=== PATIENT | female | born 1985 | race Caucasian/White ===

== ENCOUNTER 2016-12-06 04:51 | Observation (INO) | payer SELFPAY ==
[~2016-12-06] VITALS: Ht 165.1 cm; Wt 55.0 kg
[2016-12-06 04:51] VITALS: BP 162/74; PULSE 98; RESP 18; TEMP 98; O2SAT 97
[~2016-12-06 04:51] MED LIST: LORT7.5T3 PO; Z.0.NO CURRENT MEDS
[2016-12-06] MEDS ORDERED: LIDOCAINE 1%/EPINEPHrine 1:100,000 SOLN 20 ML VIAL INFIL ONE (05:15)
[2016-12-06] MEDS ORDERED: ONDANSETRON HCL 4 MG/2 ML VIAL IV PUSH ONE (05:15)
[2016-12-06] MEDS ORDERED: MORPHINE SULFATE 8 MG/ML INJ IV PUSH ONE (05:15)
[2016-12-06] MEDS ORDERED: BUPIVACAINE HCL PF 0.5% 30 ML VIAL INFIL ONE (05:15)
[2016-12-06] MEDS ORDERED: PIPERACIL-TAZO 3.375 GM PREMIX 50 ML IV ONE (05:15)
[2016-12-06] MEDS ORDERED: VANCOMYCIN INJ 1,100 MG in SODIUM CHLOR 0.9% 250 ML INJ 250 ML IV ONE (05:15)
--- NOTE | 2016-12-06 05:26 | PD ---
HPI Chief Complaint: Skin Problem Time Seen by Provider: 05:23 Travel History International Travel<30 days: No Contact w/Intl Traveler<30days: No Traveled to known affect area: No History of Present Illness HPI 31-year-old white female presents to emergency Department with complaints of a recurrent abscess to her left buttocks. She states that she's had an incision and drainage done in the past. Over the past week she's had increasing pain, redness and swelling to the left buttocks. No drainage. The patient states the pain is moderate to severe. She denies any documented fever but states that she feels warm. No nausea vomiting. No abdominal pain or urinary symptoms. PFSH Past Medical History Narrative Medical Hypertension substance abuse Tetanus Vaccination: < 5 Years ?: Not : 1 Past Surgical History Narrative Surgical Incision and drainage left buttocks abscess Genitourinary Surgery: Yes (PRE-CERVICAL CANCER WITH PARTIAL REMOVAL OF CERVIX) Social History Alcohol Use: No Tobacco Use: Yes (/ PPD) Substance Use: Yes Allergies-Medications (Allergen,Severity, Reaction): Coded Allergies: No Known Allergies (Verified , 12/06/16) Reported Meds & Prescriptions Reported Meds & Active Scripts Active No Active Prescriptions or Reported Medications Review of Systems Except as stated in HPI: all other systems reviewed are Neg Physical Exam Narrative GENERAL: Well-developed, well-nourished in no apparent distress. Nontoxic appearing. HEAD: Normocephalic, atraumatic. EYES: Pupils equal round and reactive. Extraocular motions intact. No scleral icterus. No injection or drainage. ENT: Nose clear. Throat without erythema, tonsillar hypertrophy or exudate. Uvula midline. Airway patent. NECK: Trachea midline. Supple, nontender, moves head freely. No central bony tenderness or spasm. CARDIOVASCULAR: Regular rate and rhythm without murmurs, gallops, or rubs. RESPIRATORY: Clear to auscultation. Breath sounds equal bilaterally. No wheezes , rales, or rhonchi. GASTROINTESTINAL: Abdomen soft, non-tender, nondistended. No hepato-splenomegaly , or palpable masses. No guarding. EXTREMITIES: No clubbing, cyanosis, or edema. No joint tenderness. BACK: Nontender without deformity. No flank tenderness. NEUROLOGICAL: Awake, alert and oriented x 3 .Cranial nerves grossly intact. Motor and sensory grossly within normal limits. Normal speech. Skin: The patient has an 8 x 9 cm fluctuant and indurated abscess to the left buttocks. Data Data Last Documented VS Vital Signs Date Time Temp Pulse Resp B/P Pulse Ox O2 Delivery O2 Flow Rate FiO2 12/06/16 04:51 98.0 98 18 162/74 97 Room Air Orders Iv Access Insert/Monitor (12/06/16 05:15) Complete Blood Count With Diff (12/06/16 05:15) Basic Metabolic Panel (Bmp) (12/06/16 05:15) Wound Culture And Gram Stain (12/06/16 05:15) Piperacil-Tazo 3.375 Gm Premix (Zosyn 3. (12/06/16 05:15) Vancomycin Inj (Vancomycin Inj) (12/06/16 05:15) Ondansetron Inj (Zofran Inj) (12/06/16 05:15) Morphine Inj (Morphine Inj) (12/06/16 05:15) Lidocai-Epi 1%-1:100,000 Inj (Xylocaine- (12/06/16 05:15) Bupivacaine Pf 0.5% Inj (Marcaine Pf 0.5 (12/06/16 05:15) Sodium Chlorid 0.9% 500 Ml Inj (Ns 500 M (12/06/16 06:45) Labs Laboratory Tests Test 12/06/16 06:00 White Blood Count 12.5 TH/MM3 Red Blood Count 4.30 MIL/MM3 Hemoglobin 12.1 GM/DL Hematocrit 35.4 % Mean Corpuscular Volume 82.3 FL Mean Corpuscular Hemoglobin 28.1 PG Mean Corpuscular Hemoglobin 34.2 % Concent Red Cell Distribution Width 14.8 % Platelet Count 348 TH/MM3 Mean Platelet Volume 8.1 FL Neutrophils (%) (Auto) 84.4 % Lymphocytes (%) (Auto) 10.5 % Monocytes (%) (Auto) 4.6 % Eosinophils (%) (Auto) 0.2 % Basophils (%) (Auto) 0.3 % Neutrophils # (Auto) 10.6 TH/MM3 Lymphocytes # (Auto) 1.3 TH/MM3 Monocytes # (Auto) 0.6 TH/MM3 Eosinophils # (Auto) 0.0 TH/MM3 Basophils # (Auto) 0.0 TH/MM3 CBC Comment DIFF FINAL Differential Comment Sodium Level 140 MEQ/L Potassium Level 3.2 MEQ/L Chloride Level 110 MEQ/L Carbon Dioxide Level 21.0 MEQ/L Anion Gap 9 MEQ/L Blood Urea Nitrogen 9 MG/DL Creatinine 0.71 MG/DL Estimat Glomerular Filtration 97 ML/MIN Rate Random Glucose 109 MG/DL Calcium Level 9.0 MG/DL MDM Medical Decision Making Medical Screen Exam Complete: Yes Emergency Medical Condition: Yes Medical Record Reviewed: Yes Interpretation(s) CBC & BMP Diagram 12/06/16 06:00 Differential Diagnosis MDM: High Differential diagnoses: Abscess, folliculitis, cellulitis, lymphangitis, abrasion, contact dermatitis Narrative Course IV access is obtained. CBC, chemistry, wound culture. Patient's given 3.375 of Zosyn IV. Vancomycin 1.1 g IV Procedures Procedure Narrative I&D abscess: After the risks and benefits were discussed the following procedure was performed. The skin is prepped and draped in the usual sterile fashion using Betadine. The abscess is anesthetized with 1% lidocaine with epinephrine and 0.5% Marcaine. After adequate anesthesia, an 11 blade scalpel is used to make a 4 centimeter central incision. Perulant material is expressed and cultured. Loculations are broken up using curved Mariam forceps. The wound is cleansed deeply using dilute Betadine and peroxide on Q-tips. The wound is packed open using iodoform gauze. A clean dressing is applied. The patient tolerated the procedure well. There was no complications. Follow-up instructions were given to the patient. Physician Communication Physician Communication The case has been discussed with Dr. CORONADO who is agreed to admit the patient Diagnosis Primary Impression: left buttock abscess with cellulitis Admitting Information Admitting Physician Requests: Observation Scripts No Active Prescriptions or Reported Meds Condition: Homar Wong December 06, 2016 05:26
[2016-12-06 06:12] LABS: AUTOMATED NEUTROPHIL # 10.6 TH/MM3 (1.8-7.7); BASOPHIL % 0.3 % (0.0-2.0); EOSINOPHIL % 0.2 % (0.0-4.0); HEMATOCRIT 35.4 % (35.0-46.0); HEMO FLAGS DIFF FINAL; LYMPH % 10.5 % (9.0-44.0); LYMPHOCYTE # 1.3 TH/MM3 (1.0-4.8); MEAN CELL VOLUME 82.3 FL (80.0-100.0); MEAN CORPUSCULAR HEMOGLOBIN 28.1 PG (27.0-34.0); MEAN CORPUSCULAR HGB CONC 34.2 % (32.0-36.0); MONO % 4.6 % (0.0-8.0); NEUT % 84.4 % (16.0-70.0); PLATELET COUNT 348 TH/MM3 (150-450); RED CELL DISTRIBUTION WIDTH 14.8 % (11.6-17.2); WHITE BLOOD COUNT 12.5 TH/MM3 (4.0-11.0)
[2016-12-06 06:28] LABS: POTASSIUM 3.2 MEQ/L (3.5-5.1)
[2016-12-06] MEDS ORDERED: SODIUM CHLORID 0.9% 500 ML INJ 500 ML IV ONE (06:45)
[2016-12-06] MEDS ORDERED: NALOXONE HCL 0.4 MG/ML AMP IV PRN (07:00)
[2016-12-06] MEDS ORDERED: ONDANSETRON HCL 4 MG/2 ML VIAL IVP PRN (07:00)
[2016-12-06] MEDS ORDERED: Vancomycin Consult Pharmacy 1 EA OTHER SCH (07:00)
[2016-12-06] MEDS ORDERED: SODIUM CHLORIDE 0.9% FLUSH 10 ML FLUSH IV FLUSH PRN (07:00)
[2016-12-06] MEDS ORDERED: ACETAMINOPHEN 325 MG TAB PO PRN (07:00)
[2016-12-06 07:39] VITALS: BP 178/92; PULSE 86; RESP 16; O2SAT 99
[2016-12-06] MEDS ORDERED: ENOXAPARIN SODIUM 40 MG/0.4 ML SYRINGE SQ SCH (08:00)
[2016-12-06] MEDS ORDERED: ACETAMINOPHEN/HYDROcodone 325 MG/5 MG TAB PO PRN (08:45)
--- NOTE | 2016-12-06 08:56 | HHI.HP ---
HPI Service [facility] Primary Care Physician No Primary Care Physician Admission Diagnosis left buttock abscess with cellulitis Diagnoses: Chief Complaint: Buttocks abscess Travel History International Travel<30 Days: No Contact w/Intl Traveler <30 Da: No Traveled to Known Affected Are: No History of Present Illness 31-year-old female with past medical history of HTN who presented with buttocks abscess. The patient states that one week ago she began having a boil on her buttocks. She states that in the morning getting progressively worse with swelling and pain. She states that she has had a history of abscess in a similar area a few years ago that required drainage. She does have a history of polysubstance abuse and took 2 Lortab 2 days ago. She had I&D done in the ED and reports significant improvement in symptoms since then. She denies any fever, chills, night sweats, cough, shortness breath, chest pain, nausea, vomiting, diarrhea, constipation, headache, vision changes. Review of Systems Except as stated in HPI: all other systems reviewed are Neg Past Family Social History Past Medical History Hypertension, has been out of lisinopril 10 mg for one month Past Surgical History Patient has a history of chest tube placement after collapsed lungs Reported Medications The patient is supposed to be on lisinopril 10 mg daily. Allergies: Coded Allergies: No Known Allergies (Verified , 12/06/16) Active Ordered Medications Current Medications Medications (Trade) Dose Ordered Sig/Raegan Route Start Time Stop Time Status Last Admin (NS Flush) 2 ml UNSCH PRN IV FLUSH 12/06/16 07:00 (NS Flush) 2 ml BID IV FLUSH 12/06/16 09:00 (Tylenol) 650 mg Q4H PRN PO 12/06/16 07:00 (Zofran Inj) 4 mg Q6H PRN IVP 12/06/16 07:00 (Lovenox Inj) 40 mg Q24H SQ 12/06/16 08:00 12/06/16 07:38 Naloxone HCl 0.4 mg 0.4 mg UNSCH PRN IV 12/06/16 07:00 Pharmacy Profile Note 0 ml @ 0 mls/hr UNSCH OTHER 12/06/16 07:00 (Zosyn 3.375 Gm Premix) 50 ml @ 100 mls/hr Q6H IV 12/06/16 12:00 (KCl) 40 meq ONCE ONCE PO 12/06/16 09:00 12/06/16 09:01 (Prinivil) 10 mg DAILY PO 12/06/16 09:00 ([place] 5-325 Mg) 1 tab Q6H PRN PO 12/06/16 08:45 Family History Reviewed, negative family history pertinent to current chief complaint Social History Smokes half a pack daily Has 1-2 drinks per week Does admit to cocaine and Lortab use. Admits to IV drug abuse as well. Physical Exam Vital Signs Vital Signs Date Time Temp Pulse Resp B/P Pulse Ox O2 Delivery O2 Flow Rate FiO2 12/06/16 07:39 86 16 178/92 99 Room Air 12/06/16 04:51 98.0 98 18 162/74 97 Room Air Physical Exam GENERAL: Well-developed well-nourished. In no acute distress. SKIN: Warm and dry. Left buttock s/p I&D with packing in place, serosanguineous drainage. HEENT: Normocephalic. Pupils equal and round. Mucous membranes pink and moist. CARDIOVASCULAR: Regular rate and rhythm. No murmur appreciated. RESPIRATORY: No accessory muscle use. Clear to auscultation. Breath sounds equal bilaterally. GASTROINTESTINAL: Abdomen soft, non-tender, nondistended. Bowel sounds x4. MUSCULOSKELETAL: No obvious deformities. No clubbing or cyanosis. No edema. NEUROLOGICAL: Awake and alert. No focal neurological deficits. Moves upper and lower extremities spontaneously. Normal speech. PSYCHIATRIC: Appropriate mood and affect; insight and judgment normal. Laboratory Laboratory Tests Test 12/06/16 06:00 White Blood Count 12.5 Red Blood Count 4.30 Hemoglobin 12.1 Hematocrit 35.4 Mean Corpuscular Volume 82.3 Mean Corpuscular Hemoglobin 28.1 Mean Corpuscular Hemoglobin 34.2 Concent Red Cell Distribution Width 14.8 Platelet Count 348 Mean Platelet Volume 8.1 Neutrophils (%) (Auto) 84.4 Lymphocytes (%) (Auto) 10.5 Monocytes (%) (Auto) 4.6 Eosinophils (%) (Auto) 0.2 Basophils (%) (Auto) 0.3 Neutrophils # (Auto) 10.6 Lymphocytes # (Auto) 1.3 Monocytes # (Auto) 0.6 Eosinophils # (Auto) 0.0 Basophils # (Auto) 0.0 CBC Comment DIFF FINAL Differential Comment Sodium Level 140 Potassium Level 3.2 Chloride Level 110 Carbon Dioxide Level 21.0 Anion Gap 9 Blood Urea Nitrogen 9 Creatinine 0.71 Estimat Glomerular Filtration 97 Rate Random Glucose 109 Calcium Level 9.0 Date/Time Procedure Status Source Growth 12/06/16 06:00 Gram Stain Received Wound Buttock Pending 12/06/16 06:00 Wound Culture Received Wound Buttock Pending Result Diagram: 12/06/16 0600 12/06/16 0600 Assessment and Plan Assessment and Plan 31-year-old female with past medical history of HTN who presented with buttocks abscess Large left buttocks abscess with some surrounding cellulitis. Sepsis.: S/p I&D in the ED. HR 98, WBC 12.5. Afebrile. Continue IV vancomycin and Zosyn for now. Follow up wound culture. [place] as needed for pain. Uncontrolled hypertension: Noncompliance with lisinopril, will resume. Clonidine as needed. Polysubstance abuse: With tobacco, Lortab, cocaine, IVDA. Patient counseled on cessation. Hypokalemia: Potassium 3.2. Replace orally. Follow-up BMP and check magnesium. DVT prophylaxis: SCDs Written by Ivan Priest, acting as scribe for Dr. Causey on 12/06/16 at 08:55. Discussed Condition With Patient, ED RN Attending Statement This note was transcribed by scribquynh Priest. I, Dr. Sam Causey personally performed the history, physical exam, and medical decision making; and confirmed the accuracy of the information in the transcribed note. Authenticated by Dr. Sam Causey on 12/06/16 at 09:27. Ivan Priest December 06, 2016 08:56 Sam Causey MD December 06, 2016 09:27
[2016-12-06] MEDS ORDERED: POTASSIUM CHLORIDE 20 MEQ CONTROLLED RELEASE TAB PO ONE (09:00)
[2016-12-06] MEDS ORDERED: LISINOPRIL 10 MG TAB PO SCH (09:00)
[2016-12-06] MEDS ORDERED: cloNIDine HCL 0.1 MG TAB PO PRN (09:00)
[2016-12-06] MEDS ORDERED: SODIUM CHLORIDE 0.9% FLUSH 10 ML FLUSH IV FLUSH SCH (09:00)
[2016-12-06 09:29] VITALS: BP 172/93; PULSE 85; RESP 18; TEMP 98; O2SAT 100
[2016-12-06] MEDS ORDERED: PIPERACIL-TAZO 3.375 GM PREMIX 50 ML IV SCH (12:00)
[2016-12-06 12:41] VITALS: BP 149/93; PULSE 83; RESP 18; TEMP 98.4; O2SAT 97
[2016-12-06 12:48] VITALS: BP 148/93; PULSE 84; RESP 18; TEMP 97.8; O2SAT 97
[2016-12-06] MEDS ORDERED: VANCOMYCIN 1,000 MG/NS 250 ML IV SCH ×2 (20:00)
[2016-12-07] MEDS ORDERED: PHARMACY ORDERED LAB ONE (19:45)
== END 2016-12-06 15:26 | disposition left against medical advice (07) ==
LOC: NEPD 04:51 → NEDA 06:53 → NEPHCDU 09:14
PROVIDERS: ADMIT Family Medicine; ATTEND Family Medicine
DX: L03.317 Cellulitis of buttock (principal); A41.9 Sepsis, unspecified organism; I10 Essential (primary) hypertension; E87.6 Hypokalemia; F14.10 Cocaine abuse, uncomplicated; F19.10 Other psychoactive substance abuse, uncomplicated; Z85.41 Personal history of malignant neoplasm of cervix uteri; Z90.711 Acquired absence of uterus with remaining cervical stump; F17.200 Nicotine dependence, unspecified, uncomplicated; Z79.891 Long term (current) use of opiate analgesic; Z87.898 Personal history of other specified conditions; Z87.09 Personal history of other diseases of the respiratory system
CPT/HCPCS: 10061; 80048; 83735; 85025; 87070; 87077; 87186; 96365; 96375; 99284; G0378; J1650; J2270; J2405; J2543; J3370; J7040; J7050